=== PATIENT | male | born 1995 | race Caucasian/White ===

== ENCOUNTER → 2024-02-12 | Outpatient (CLI) | payer OTHER ==
--- NOTE | 2024-02-12 15:07 | US ---
EXAMINATION TYPE: US abdomen complete DATE OF EXAM: 02/12/2024 COMPARISON: NONE CLINICAL INDICATION: Male, 28 years old with history of R10.11 RUQ PAIN; RUQ pain and N/V, gets worse after eating TECHNIQUE: Grayscale and color Doppler imaging of the abdomen was performed. FINDINGS: EXAM MEASUREMENTS: Liver Length: 14.7 cm Gallbladder Wall: 0.2 cm CBD: 0.4 cm Right Kidney: 9.2 x 4.5 x 4.5 cm Pancreas: Obscured by bowel gas Liver: wnl Gallbladder: wnl Evidence for sonographic Perez's sign: no CBD: visualized portions wnl, limited by overlying bowel gas Right Kidney: wnl IMPRESSION: No acute process. [facility], Workstation: MARIA EUGENIA, 02/12/2024 3:05 PM
== END | disposition home or self-care (01) ==
LOC: RADUSWWP 14:12
PROVIDERS: ATTEND Family Medicine
DX: R10.11 Right upper quadrant pain (principal)
CPT/HCPCS: 76705